=== PATIENT | female | born 1940 | race Caucasian/White ===

== ENCOUNTER → 2019-12-31 | Outpatient (CLI) | payer MEDICARE, BC ==
--- NOTE | 2019-12-31 17:25 | BD ---
EXAMINATION TYPE: Axial Bone Density DATE OF EXAM: 12/31/2019 COMPARISON: 07/05/2012 CLINICAL HISTORY: 79-year-old female postmenopausal screening Height: 65.5 IN Weight: 142 LBS FRAX RISK QUESTIONS: Family History (Parent hip fracture): YES MOTHER RISK FACTORS HISTORY OF: Active: YES Diet low in dairy products/other sources of calcium: YES Postmenopausal woman: AGE 52 MEDICATIONS: Thyroid Medications: YES Which medication: Levothyroxine How Lon+ YEARS Additional Medications: LEVOTHYROXINE, ATENOLOL, KIDNEY AND HEART MEDS, B COMPLEX, MAGNESIUM, BIOTIN EXAM MEASUREMENTS: Bone mineral densitometry was performed using the [employer] System. Bone mineral density as measured about the Lumbar spine is: ----- L1-L4(G/cm2): 0.935 T Score Values are as follows: ----- L2: -2.1 ----- L3: -1.9 ----- L4: -2.3 ----- L1-L4: -2.0 Bone mineral density has: Increased 2.5% since study of: 07/05/2012 Bone mineral density about the R hip (g/cm2): 0.718 Bone mineral density about the L hip (g/cm2): 0.676 T Score values are as follows: -----R Neck: -2.3 -----L Neck: -2.6 -----R Total: -2.5 -----L Total: -2.8 Bone mineral density has: Decreased -8.9% since study of: 07/05/2012 IMPRESSION: Osteoporosis (T Score less than -2.5). There is increased fracture risk and therapy is usually indicated based on age. Re-Screen 1-2 years. NOTE: T-SCORE=SD OF THE YOUNG ADULT MEAN.
--- NOTE | 2020-01-01 11:25 | MM ---
Reason for exam: screening (asymptomatic). Last mammogram was performed 7 years and 6 months ago. History: Patient is postmenopausal. Family history of breast cancer in sister at age 85. Benign excisional biopsy of both breasts. Took hormonal contraceptives for 11 years. Physical Findings: A clinical breast exam by your physician is recommended on an annual basis and results should be correlated with mammographic findings. MG 3D Screening Mammo W/Cad Bilateral CC and MLO view(s) were taken. Prior study comparison: July 05, 2012, bilateral digital screening mammo w/CAD. The breast tissue is heterogeneously dense. This may lower the sensitivity of mammography. Stable benign calcifications. There is no discrete abnormality. No significant changes when compared with prior studies. ASSESSMENT: Benign, BI-RAD 2 RECOMMENDATION: Routine screening mammogram of both breasts in 1 year.
== END | disposition home or self-care (01) ==
LOC: RADMAMWWP 13:51
PROVIDERS: ATTEND Family Medicine
DX: Z12.31 Encounter for screening mammogram for malignant neoplasm of breast (principal); M81.0 Age-related osteoporosis without current pathological fracture
CPT/HCPCS: 77063; 77067; 77080

== ENCOUNTER 2023-03-04 12:09 | Inpatient (IN) | payer MEDICARE, BC ==
[2023-03-04] MEDS ORDERED: SODIUM CHLORIDE 0.9% 500 ML 500 ML IV STA (12:33)
[2023-03-04] MEDS ORDERED: NITROGLYCERIN SL TABS 0.4 MG TAB SUBLINGUAL STA (12:33)
[2023-03-04] MEDS ORDERED: ASPIRIN 81 MG PO STA (12:33)
[2023-03-04] MEDS ORDERED: NITROGLYCERIN OINT 1 INCH/GM PACKET TOPICAL STA (12:33)
[2023-03-04 12:47] LABS: Basophils % (A) 0 %; Eosinophils # (A) 0.1 k/uL (0-0.7); Eosinophils % (A) 1 %; HCT 42.8 % (34.0-46.0); HGB 13.6 gm/dL (11.4-16.0); Lymphocytes # (A) 2.3 k/uL (1.0-4.8); Lymphocytes % (A) 34 %; MCH 28.9 pg (25.0-35.0); MCHC 31.7 g/dL (31.0-37.0); MCV 91.1 fL (80.0-100.0); Mean Platelet Volume 7.3; Monocytes # (A) 0.6 k/uL (0-1.0); Monocytes % (A) 8 %; Neutrophils # (A) 3.5 k/uL (1.3-7.7); Neutrophils % (A) 53 %; Platelet Count 229 k/uL (150-450); RDW 13.2 % (11.5-15.5); WBC 6.7 k/uL (3.8-10.6)
[2023-03-04 12:59] LABS: Albumin 4.3 g/dL (3.5-5.0); Calcium 9.4 mg/dL (8.4-10.2); Potassium 4.2 mmol/L (3.5-5.1); Total Bilirubin 0.6 mg/dL (0.2-1.3); Total Protein 6.6 g/dL (6.3-8.2)
[2023-03-04 13:08] LABS: INR 0.9 (<1.2); Prothrombin Time 9.8 sec (9.0-12.0)
--- NOTE | 2023-03-04 13:10 | XR ---
EXAMINATION TYPE: XR chest 2V DATE OF EXAM: 03/04/2023 COMPARISON: NONE HISTORY: Chest pain TECHNIQUE: Frontal and lateral views of the chest are obtained. FINDINGS: There is no focal air space opacity, pleural effusion, or pneumothorax seen. The cardiac silhouette size is within normal limits. The osseous structures are intact. IMPRESSION: No acute cardiopulmonary process.
--- NOTE | 2023-03-04 13:40 | ED ---
General Adult HPI - General Chief complaint: Chest Pain Stated complaint: syncope Time Seen by Provider: 03/04/23 12:20 Source: patient, RN notes reviewed, old records reviewed Mode of arrival: ambulatory Limitations: no limitations - History of Present Illness Initial comments: This is an 82-year-old female presents emergency Department with past medical history significant for high blood pressure. Patient states she started having chest pain about 45 minutes prior to arrival she states it made her very short of breath. Patient denies any radiation of the pain. Patient denies any nausea. Patient denies any lightheadedness dizziness or near syncopal episode. Patient denies any swelling to legs or calf tenderness. Patient denies any recent fever chills or cough per patient denies any abdominal pain patient denies nausea vomiting diarrhea. - Related Data Home Medications Medication Instructions Recorded Confirmed Benazepril HCl [Lotensin] 20 mg PO HS 03/04/23 03/04/23 Levothyroxine Sodium [Synthroid] 75 mcg PO DAILY 03/04/23 03/04/23 atenoloL [Tenormin] 25 mg PO HS 03/04/23 03/04/23 Allergies Allergy/AdvReac Type Severity Reaction Status Date / Time Penicillins Allergy Rash/Hives Verified 03/04/23 14:04 Review of Systems ROS Statement: Those systems with pertinent positive or pertinent negative responses have been documented in the HPI. ROS Other: All systems not noted in ROS Statement are negative. Past Medical History Past Medical History: Hypertension, Osteoarthritis (OA), Thyroid Disorder Additional Past Medical History / Comment(s): TORN CARTILEDGE ON LEFT KNEE History of Any Multi-Drug Resistant Organisms: None Reported Past Surgical History: Breast Surgery, Cholecystectomy, Tubal Ligation Additional Past Surgical History / Comment(s): BREAST BIOPSY X2 NEG. Past Anesthesia/Blood Transfusion Reactions: Postoperative Nausea & Vomiting (PONV) Past Psychological History: No Psychological Hx Reported Smoking Status: Never smoker Past Alcohol Use History: None Reported Past Drug Use History: None Reported General Exam - General Exam Comments Initial Comments: GENERAL: Patient is well-developed and well-nourished. Patient is nontoxic and well- hydrated and is in mild distress. ENT: Neck is soft and supple. No significant lymphadenopathy is noted. Oropharynx is clear. Moist mucous membranes. Neck has full range of motion without eliciting any pain. EYES: The sclera were anicteric and conjunctiva were pink and moist. Extraocular movements were intact and pupils were equal round and reactive to light. Eyelids were unremarkable. PULMONARY: Unlabored respirations. Good breath sounds bilaterally. No audible rales rhonchi or wheezing was noted. CARDIOVASCULAR: There is a regular rate and rhythm without any murmurs gallops or rubs. ABDOMEN: Soft and nontender with normal bowel sounds. SKIN: Skin is clear with no lesions or rashes and otherwise unremarkable. NEUROLOGIC: Patient is alert and oriented x3. Cranial nerves II through XII are grossly intact. Motor and sensory are also intact. Normal speech, volume and content. Symmetrical smile. MUSCULOSKELETAL: Normal extremities with adequate strength and full range of motion. No lower extremity swelling or edema. No calf tenderness. LYMPHATICS: No significant lymphadenopathy is noted PSYCHIATRIC: Normal psychiatric evaluation. Limitations: no limitations Course Vital Signs 03/04/23 12:16 Temperature 98 F Pulse Rate 82 Respiratory 18 Rate Blood Pressure 176/80 O2 Sat by Pulse 99 Oximetry Medical Decision Making - Medical Decision Making EKG was interpreted by myself. EKG shows a sinus rhythm at 93 bpm MO interval 150 QRS is 98 QT interval 370 QTC is 421. Patient's EKG shows no ST segment el evation or depression. Was pt. sent in by a medical professional or institution (, PA, SENIOR MANUFACTURING ENGINEER, urgent care, hospital, or fpc...) When possible be specific @ -No Did you speak to anyone other than the patient for history (EMS, parent, family, police, friend...)? What history was obtained from this source @ -No Did you review nursing and triage notes (agree or disagree)? Why? @ -I reviewed and agree with nursing and triage notes Were old charts reviewed (outside hosp., previous admission, EMS record, old EKG, old radiological studies, urgent care reports/EKG's, fpc records)? Report findings @ -I reviewed prior charts from this patient prior laboratory work on this patient Differential Diagnosis (chest pain, altered mental status, abdominal pain women, abdominal pain men, vaginal bleeding, weakness, fever, dyspnea, syncope, headache, dizziness, GI bleed, back pain, seizure, CVA, palpatations, mental health, musculoskeletal)? @ -Differential Chest Pain: Stable Angina, Unstable Angina, STEMI, NSTEMI Aortic Dissection, Pneumothorax, Musculoskeletal, Esophageal Spasm GERD, Cholecystitis, Pancreatitis, Zoster, this is not meant to be an all-inclusive list. EKG interpreted by me (3pts min.). @ -As above X-rays interpreted by me (1pt min.). @ -Chest x-ray was interpreted by myself. Chest x-ray shows no acute abnormality CT interpreted by me (1pt min.). @ -I interpreted the CT of the patient's chest is on no PE No aortic dissection. U/S interpreted by me (1pt. min.). @ -None done What testing was considered but not performed or refused? (CT, X-rays, U/S, labs)? Why? @ -None What meds were considered but not given or refused? Why? @ -None Did you discuss the management of the patient with other professionals (professionals i.e. , PA, SENIOR MANUFACTURING ENGINEER, lab, RT, psych nurse, social insurance analyst, ornamental metal worker helper, teacher, senior credit officer, human services case manager)? Give summary @ -[facility] the patient I wrote admitting orders Was smoking cessation discussed for >3mins.? @ -No Was critical care preformed (if so, how long)? @ -No Were there social determinants of health that impacted care today? How? (Homelessness, low income, unemployed, alcoholism, drug addiction, transportation, low edu. Level, literacy, decrease access to med. care, fdc, rehab)? @ -No Was there de-escalation of care discussed even if they declined (Discuss DNR or withdrawal of care, Hospice)? DNR status @ -No What co-morbidities impacted this encounter? (DM, HTN, Smoking, COPD, CAD, Cancer, CVA, ARF, Chemo, Hep., AIDS, mental health diagnosis, sleep apnea, morbid obesity)? @ -None Was patient admitted / discharged? Hospital course, mention meds given and route, prescriptions, significant lab abnormalities, going to OR and other pertinent info. @ -Patient's chest pain was relieved with nitroglycerin. I spoke with Mr. Mr. de paz he agreed to admit the patient I wrote admitting orders I consulted cardiology CAT scan was negative for PE or aortic dissection Undiagnosed new problem with uncertain prognosis? @ -No Drug Therapy requiring intensive monitoring for toxicity (Heparin, Nitro, Insulin, Cardizem)? @ -No Were any procedures done? @ -No Diagnosis/symptom? @ -Chest pain Acute, or Chronic, or Acute on Chronic? @ -Acute Uncomplicated (without systemic symptoms) or Complicated (systemic symptoms)? @ -Complicating Side effects of treatment? @ -No Exacerbation, Progression, or Severe Exacerbation? @ -No Poses a threat to life or bodily function? How? (Chest pain, [place], [place], pneumonia, PE, COPD, DKA, ARF, appy, cholecystitis, CVA, Diverticulitis, Homicidal, Suicidal, threat to staff... and all critical care pts) @ -Yes patient could go on to have a heart attack and this could lead to end organ dysfunction - Lab Data Result diagrams: 03/04/23 12:38 03/04/23 12:38 Lab Results 03/04/23 03/04/23 03/04/23 Range/Units 12:38 12:38 12:38 WBC 6.7 (3.8-10.6) k/uL RBC 4.70 (3.80-5.40) m/uL Hgb 13.6 (11.4-16.0) gm/dL Hct 42.8 (34.0-46.0) % MCV 91.1 (80.0-100.0) fL MCH 28.9 (25.0-35.0) pg MCHC 31.7 (31.0-37.0) g/dL RDW 13.2 (11.5-15.5) % Plt Count 229 (150-450) k/uL MPV 7.3 Neutrophils % 53 % Lymphocytes % 34 % Monocytes % 8 % Eosinophils % 1 % Basophils % 0 % Neutrophils # 3.5 (1.3-7.7) k/uL Lymphocytes # 2.3 (1.0-4.8) k/uL Monocytes # 0.6 (0-1.0) k/uL Eosinophils # 0.1 (0-0.7) k/uL Basophils # 0.0 (0-0.2) k/uL PT 9.8 (9.0-12.0) sec INR 0.9 (<1.2) APTT 24.0 (22.0-30.0) sec D-Dimer 1.30 H (<0.60) mg/L FEU Sodium 138 (137-145) mmol/L Potassium 4.2 (3.5-5.1) mmol/L Chloride 107 (98-107) mmol/L Carbon Dioxide 25 (22-30) mmol/L Anion Gap 6 mmol/L BUN 19 H (7-17) mg/dL Creatinine 0.96 (0.52-1.04) mg/dL Est GFR (CKD-EPI)AfAm 64 (>60 ml/min/1.73 sqM) Est GFR (CKD-EPI)NonAf 56 (>60 ml/min/1.73 sqM) Glucose 94 (74-99) mg/dL Calcium 9.4 (8.4-10.2) mg/dL Magnesium 2.0 (1.6-2.3) mg/dL Total Bilirubin 0.6 (0.2-1.3) mg/dL AST 26 (14-36) U/L ALT 23 (4-34) U/L Alkaline Phosphatase 72 (38-126) U/L Troponin I (0.000-0.034) ng/mL Total Protein 6.6 (6.3-8.2) g/dL Albumin 4.3 (3.5-5.0) g/dL 03/04/23 Range/Units 12:38 WBC (3.8-10.6) k/uL RBC (3.80-5.40) m/uL Hgb (11.4-16.0) gm/dL Hct (34.0-46.0) % MCV (80.0-100.0) fL MCH (25.0-35.0) pg MCHC (31.0-37.0) g/dL RDW (11.5-15.5) % Plt Count (150-450) k/uL MPV Neutrophils % % Lymphocytes % % Monocytes % % Eosinophils % % Basophils % % Neutrophils # (1.3-7.7) k/uL Lymphocytes # (1.0-4.8) k/uL Monocytes # (0-1.0) k/uL Eosinophils # (0-0.7) k/uL Basophils # (0-0.2) k/uL PT (9.0-12.0) sec INR (<1.2) APTT (22.0-30.0) sec D-Dimer (<0.60) mg/L FEU Sodium (137-145) mmol/L Potassium (3.5-5.1) mmol/L Chloride (98-107) mmol/L Carbon Dioxide (22-30) mmol/L Anion Gap mmol/L BUN (7-17) mg/dL Creatinine (0.52-1.04) mg/dL Est GFR (CKD-EPI)AfAm (>60 ml/min/1.73 sqM) Est GFR (CKD-EPI)NonAf (>60 ml/min/1.73 sqM) Glucose (74-99) mg/dL Calcium (8.4-10.2) mg/dL Magnesium (1.6-2.3) mg/dL Total Bilirubin (0.2-1.3) mg/dL AST (14-36) U/L ALT (4-34) U/L Alkaline Phosphatase (38-126) U/L Troponin I <0.012 (0.000-0.034) ng/mL Total Protein (6.3-8.2) g/dL Albumin (3.5-5.0) g/dL Disposition Clinical Impression: Chest pain Disposition: ADMITTED IP TO THIS HOSP Referrals: Devan Lopez MD [Primary Care Provider] - 1-2 days Time of Disposition: 14:34
--- NOTE | 2023-03-04 14:09 | CT ---
EXAMINATION TYPE: CT chest angio for PE DATE OF EXAM: 03/04/2023 COMPARISON: none HISTORY: Chest pain. CT DLP: 220.8 mGycm CONTRAST: CT chest with contrast and 3D reconstruction with MIP imaging is performed with IV Contrast, patient injected with 68ml mL of Isovue 370. Contrast-enhanced CT of the chest was performed through the course of the pulmonary arteries with alma g and mediastinal window settings submitted. 3D reconstruction with MIP imaging was also performed. PULMONARY ARTERIES: The pulmonary arteries and their major tributaries are patent. I do not see cedric dence for sizable filling defect to suggest pulmonary embolic process. LUNGS: The lungs are clear and free of infiltrate. No evidence for atelectasis. No pulmonary nodule or mass is detected. No pleural effusion. MEDIASTINUM: Thoracic aorta is of normal caliber,however, evaluation is limited given timing of the contrast bolus. If there is concern for thoracic aortic pathology consider ELENA. Correlate clinicall y . The heart is not enlarged. No evidence for mediastinal mass. No mediastinal lymph nodes greater than 1cm. HILAR STRUCTURES: No evidence for mass. No hilar lymph nodes greater than 1 cm. UPPER ABDOMEN: No significant abnormality is seen. IMPRESSION: 1. No evidence for Pulmonary embolism at this time.
[2023-03-04] MEDS ORDERED: NITROGLYCERIN SL TABS 0.4 MG TAB SUBLINGUAL PRN (14:34)
[2023-03-04] MEDS: atenoloL 25 MG TAB PO SCH (20:17)
[2023-03-04] MEDS: PANTOPRAZOLE 40 MG/10 ML VIAL IVP SCH (20:17)
[2023-03-04] MEDS: NITROGLYCERIN OINT 1 INCH/GM PACKET TOPICAL SCH (20:17)
[2023-03-04] MEDS ORDERED: lisinopriL 20 MG TAB PO SCH (21:00)
[2023-03-05] MEDS: NITROGLYCERIN OINT 1 INCH/GM PACKET TOPICAL SCH ×4 (01:26→17:43)
--- NOTE | 2023-03-05 02:17 | HP ---
HISTORY AND PHYSICAL CHIEF COMPLAINT: Chest pain. HISTORY OF PRESENT ILLNESS: This is an 82-year-old woman with a past medical history of hypertension, DJD, GERD, was complaining of chest pain which was felt in the center part of the chest which was constricting type of pain without any radiation. The pain lasted about 45 minutes and the family noted that the patient had some blanched appearance also. The patient did have previous GERD symptoms, but this is somewhat different from the previous symptoms according to her. There is no history of any fever, rigors, or chills. Initial labs are normal. D-dimer was elevated but CT did not show any pulmonary embolism. PAST MEDICAL HISTORY: Reviewed, include hypertension, DJD. The rest of the history and rest of the chart is also reviewed. HOME MEDICATIONS: Reviewed include Tenormin. Doses and rest of medication noted. ALLERGIES: Penicillin. FAMILY HISTORY: No history of heart disease or strokes in the family. SOCIAL HISTORY: No history of smoking or alcohol intake. REVIEW OF SYSTEMS: A 14-point review of systems is negative except as mentioned earlier. PHYSICAL EXAMINATION: VITAL SIGNS: Pulse 82, blood pressure n respirations 18. HEENT: Conjunctivae normal. NECK: No jugular venous distention. CARDIOVASCULAR: S1, S2. RESPIRATION: Breath sounds diminished at the bases. No rhonchi. No crackles. ABDOMEN: Soft, nontender. LEGS: No edema. NERVOUS SYSTEM: No focal deficits. SKIN: No ulcer, rash, bleeding. JOINTS: No active deforming arthropathy. LABORATORY DATA: CBC within normal limits. D-dimer . The rest of the labs noted. EKG shows nonspecific ST-T changes. ASSESSMENT: 1. Chest pain, possible unstable angina. 2. History of hypertension. 3. History of gastroesophageal reflux disease. 4. Multiple medical issues. RECOMMENDATIONS: This is an 82-year-old woman, who presented with multiple complex medical issues. At this time, I recommend to continue current medications rule out myocardial infarction. Follow closely with Cardiology. Resume the home medications. The patient will definitely need a stress test and further evaluation. Further recommendations to follow. Discussed with the patient and family. MMODL / IJN: [id number] / MTDD
[2023-03-05] MEDS: LEVOTHYROXINE 75 MCG TAB PO SCH (05:54)
[2023-03-05 08:03] LABS: Basophils % (A) 1 %; Eosinophils # (A) 0.1 k/uL (0-0.7); Eosinophils % (A) 1 %; HCT 40.5 % (34.0-46.0); Lymphocytes # (A) 1.2 k/uL (1.0-4.8); Lymphocytes % (A) 25 %; MCH 29.7 pg (25.0-35.0); MCHC 32.1 g/dL (31.0-37.0); MCV 92.5 fL (80.0-100.0); Mean Platelet Volume 7.3; Monocytes # (A) 0.4 k/uL (0-1.0); Monocytes % (A) 9 %; Neutrophils # (A) 2.9 k/uL (1.3-7.7); Neutrophils % (A) 61 %; Platelet Count 217 k/uL (150-450); RBC 4.38 m/uL (3.80-5.40); RDW 13.3 % (11.5-15.5); WBC 4.8 k/uL (3.8-10.6)
[2023-03-05 08:16] LABS: African American GFR (CKD) 72 (>60 ml/min/1.73 sqM); Anion Gap 2 mmol/L; Blood Urea Nitrogen 14 mg/dL (7-17); Calcium 9.2 mg/dL (8.4-10.2); Carbon Dioxide 30 mmol/L (22-30); Chloride 108 mmol/L (98-107); Glucose 89 mg/dL (74-99); Non-African American GFR(CKD) 63 (>60 ml/min/1.73 sqM); Potassium 4.6 mmol/L (3.5-5.1); Sodium 140 mmol/L (137-145)
[2023-03-05] MEDS ORDERED: ASPIRIN 325 MG TAB PO SCH (09:00)
[2023-03-05] MEDS: PANTOPRAZOLE 40 MG TABLET PO SCH (10:10)
[2023-03-05] MEDS: PANTOPRAZOLE 40 MG/10 ML VIAL IVP SCH (10:51)
[2023-03-05] MEDS ORDERED: lisinopriL 10 MG TAB PO STA (12:32)
--- NOTE | 2023-03-05 12:36 | P.CRDCN ---
History of Present Illness Consult date: 03/05/23 History of present illness: This very pleasant 82-year-old female with a known history of hypertension and hypothyroidism was brought into the ER with complaints of chest pain and dizziness. We have been consulted to see her for chest pain. 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 Patient was walking in the grocery store with her daughter she dizziness and chest pressure. Lasted about 45 minutes. Her EKG showed sinus rhythm. Troponins were negative 3. D-dimer was elevated. CT of the chest was negative for pulmonary embolism. Chest x-ray was negative for acute cardiopulmonary process. Blood pressure was elevated upon admission. This morning remains elevated at 168/77, heart rates in the 50s or 60s. Patient does take benazepril 20 mg at bedtime at home. When asked if her blood pressure been running high at home. She states she checked it about a week ago. It was elevated in the morning similar to today's reading. But she had forgot to take her blood pressure pills the night before and thought that was why. But has not checked it since. Patient is seen today resting comfortably on the side of the bed injuring her breakfast. Daughter is present in the room. She denies any further episodes of chest pain,/pressure, or increased shortness of breath. Will increase lisinopril to 30 mg daily. Will obtain a 2-D echocardiogram and jeyson stress test tomorrow Review of Systems REVIEW OF SYSTEMS At the time of my exam: CONSTITUTIONAL: Denies fever or chills. EYES: Negative for vision changes ENT: Negative for hearing loss CARDIOVASCULAR: Denies chest pain, shortness of breath, diaphoresis, orthopnea, PND or palpitations. VASCULAR: Denies edema RESPIRATORY: Denies cough. GASTROINTESTINAL: Denies abdominal pain, diarrhea, constipation, nausea or vomiting. MUSCULOSKELETAL: Denies myalgias. NEUROLOGIC: Denies numbness, tingling, headache or weakness. ENDOCRINE: Denies fatigue, weight change, polydipsia or polyurina. GENITOURINARY: Denies burning, hematuria or urgency with micturation. HEMATOLOGIC: Denies history of anemia or bleeding. DERMATOLOGY: Denies rash or skin sores PSYCH: Negative for depression or hallucinations. Past Medical History Past Medical History: Hypertension, Osteoarthritis (OA), Thyroid Disorder Additional Past Medical History / Comment(s): TORN CARTILEDGE ON LEFT KNEE History of Any Multi-Drug Resistant Organisms: None Reported Past Surgical History: Breast Surgery, Cholecystectomy, Tubal Ligation Additional Past Surgical History / Comment(s): BREAST BIOPSY X2 NEG. Past Anesthesia/Blood Transfusion Reactions: Postoperative Nausea & Vomiting (PONV) Past Psychological History: No Psychological Hx Reported Smoking Status: Never smoker Past Alcohol Use History: None Reported Past Drug Use History: None Reported Medications and Allergies Home Medications Medication Instructions Recorded Confirmed Type Benazepril HCl [Lotensin] 20 mg PO HS 03/04/23 03/04/23 History Levothyroxine Sodium [Synthroid] 75 mcg PO DAILY 03/04/23 03/04/23 History atenoloL [Tenormin] 25 mg PO HS 03/04/23 03/04/23 History Aspirin 81 mg PO DAILY #30 tab 03/05/23 Rx Nitroglycerin Sl Tabs [Nitrostat] 0.4 mg SUBLINGUAL Q5M PRN #20 tab 03/05/23 Rx Pantoprazole [Protonix] 40 mg PO AC-BRKFST #30 tab 03/05/23 Rx Allergies Allergy/AdvReac Type Severity Reaction Status Date / Time Penicillins Allergy Rash/Hives Verified 03/04/23 14:04 Physical Exam Vitals: Vital Signs Temp Pulse Pulse Resp BP BP Pulse Ox 03/05/23 08:00 64 18 03/05/23 07:59 97 03/05/23 07:00 97.6 F 64 18 168/77 97 03/05/23 03:34 98.1 F 59 L 18 137/68 97 03/05/23 01:22 82 18 03/04/23 20:24 82 18 03/04/23 19:51 97.8 F 70 16 170/72 96 03/04/23 17:03 97.9 F 82 18 166/69 98 03/04/23 15:55 80 18 156/75 97 Intake and Output 03/04/23 03/05/23 03/05/23 22:59 06:59 14:59 Other: # Voids 2 2 Weight 67.132 kg At the time of my exam: General: The patient is awake and alert, in no distress, and does not appear acutely ill. Skin: Skin is warm and dry and no rashes or lesions are noted. Eye: Pupils are equal, round and reactive to light, extra-ocular movements are intact; there is normal conjunctiva bilaterally. Ears, nose, mouth and throat: There are moist mucous membranes and no oral lesions. Neck: The neck is supple, there is no tenderness or JVD. Cardiovascular: There is irregular regular rate and rhythm. No murmur, rub or gallop is appreciated. Respiratory: Lungs are clear to auscultation, respirations are non-labored, breath sounds are equal. Gastrointestinal: Soft, non-distended, non-tender abdomen without masses or organomegaly noted. There is no rebound or guarding present. Bowel sounds are unremarkable. Back: There is no tenderness to palpation in the midline. There is no obvious deformity. Musculoskeletal: Normal ROM, no tenderness, There is no pedal edema. There is no calf tenderness or swelling. Extremities: Mild bilateral pitting edema Vascular: Femoral pulse is normal. Posterior tibial pulses are normal .Dorsalis pedis is palpable. Neurological: CN II-XII intact. There are no obvious motor or sensory deficits. Speech is normal. Psychiatric: Cooperative, appropriate mood & affect, normal judgment Results 03/05/23 07:27 03/05/23 07:27 Cardiac Enzymes 03/04/23 03/04/23 03/04/23 Range/Units 12:38 12:38 14:49 AST 26 (14-36) U/L Troponin I <0.012 <0.012 (0.000-0.034) ng/mL 03/04/23 Range/Units 18:25 AST (14-36) U/L Troponin I <0.012 (0.000-0.034) ng/mL Coagulation 03/04/23 Range/Units 12:38 PT 9.8 (9.0-12.0) sec APTT 24.0 (22.0-30.0) sec CBC 03/04/23 03/05/23 Range/Units 12:38 07:27 WBC 6.7 4.8 (3.8-10.6) k/uL RBC 4.70 4.38 (3.80-5.40) m/uL Hgb 13.6 13.0 (11.4-16.0) gm/dL Hct 42.8 40.5 (34.0-46.0) % Plt Count 229 217 (150-450) k/uL Comprehensive Metabolic Panel 03/04/23 03/05/23 Range/Units 12:38 07:27 Sodium 138 140 (137-145) mmol/L Potassium 4.2 4.6 (3.5-5.1) mmol/L Chloride 107 108 H (98-107) mmol/L Carbon Dioxide 25 30 (22-30) mmol/L BUN 19 H 14 (7-17) mg/dL Creatinine 0.96 0.87 (0.52-1.04) mg/dL Glucose 94 89 (74-99) mg/dL Calcium 9.4 9.2 (8.4-10.2) mg/dL AST 26 (14-36) U/L ALT 23 (4-34) U/L Alkaline Phosphatase 72 (38-126) U/L Total Protein 6.6 (6.3-8.2) g/dL Albumin 4.3 (3.5-5.0) g/dL Current Medications Generic Name Dose Route Start Last Admin Trade Name Freq PRN Reason Stop Dose Admin Aspirin 325 mg 03/05/23 09:00 03/05/23 10:10 Aspirin 325 Mg Tab PO 325 mg DAILY [facility] Administration Atenolol 25 mg 03/04/23 21:00 03/04/23 20:17 Atenolol 25 Mg Tab PO 25 mg HS [facility] Administration Levothyroxine Sodium 75 mcg 03/05/23 06:30 03/05/23 05:54 Levothyroxine 75 Mcg Tab PO 75 mcg DAILY@0630 [facility] Administration Lisinopril 20 mg 03/04/23 21:00 03/04/23 20:17 Lisinopril 20 Mg Tab PO 20 mg HS [facility] Administration Nitroglycerin 0.4 mg 03/04/23 14:34 Nitroglycerin Sl Tabs 0.4 Mg Tab SUBLINGUAL Q5M PRN Chest Pain Nitroglycerin 1 inch 03/04/23 18:00 03/05/23 05:53 Nitroglycerin Oint 1 Inch/Gm Packet TOPICAL 1 inch Q6HR [facility] Administration Pantoprazole Sodium 40 mg 03/05/23 09:15 03/05/23 10:10 Pantoprazole 40 Mg Tablet PO 40 mg AC-BRKFST [facility] Administration Intake and Output 03/04/23 03/05/23 03/05/23 22:59 06:59 14:59 Other: # Voids 2 2 Weight 67.132 kg 03/05/23 07:27 03/05/23 07:27 Assessment and Plan Assessment: Chest pain rule out ACS History of hypertension Plan: Will obtain a 2-D echocardiogram Will obtain a Lexiscan stress test Will increase lisinopril to 30 mg daily Continue telemetry monitoring Further recommendations based on clinical course The above impression and plan of care have been discussed and directed by the signing physician. Shelley Schmidt, nurse practitioner, acting as scribe for signing physician.
[2023-03-05 14:58] LABS: Chol/HDL Ratio 3.41 Ratio; LDL Cholesterol,Calculated 142.2 mg/dL (0.0-131.0); VLDL Calculation 17.58 mg/dL (5.00-40.00)
[2023-03-05] MEDS: atenoloL 25 MG TAB PO SCH (20:19)
[2023-03-05] MEDS: lisinopriL 10 MG TAB PO SCH (20:19)
--- NOTE | 2023-03-05 23:54 | PN ---
PROGRESS NOTE DATE OF SERVICE: 03/05/2023 SUBJECTIVE: This is an 82-year-old woman, who was admitted with chest pain, is being closely monitored. Cardiology is recommending 2D echo and stress test. No chest pain. No palpitations. CT is negative. OBJECTIVE: VITAL SIGNS: Pulse 64, blood pressure 168/77, respirations 18. CHEST: Clear to auscultation. CARDIOVASCULAR: S1, S2 muffled. ABDOMEN: Soft. LABORATORY DATA: Reviewed. ASSESSMENT: 1. Chest pain, possible unstable angina. 2. Gastroesophageal reflux disease. 3. History of hypertension. 4. Multiple medical issues. RECOMMENDATIONS AND DISCUSSION: Recommend to continue current medications, symptomatic treatment. Otherwise, n.p.o. past midnight. No caffeinated beverages and stress test per Cardiology. Prognosis guarded. Further recommendations to follow. MMODL / IJN: [id number] /
[2023-03-06] MEDS: NITROGLYCERIN OINT 1 INCH/GM PACKET TOPICAL SCH ×2 (02:20→05:03)
[2023-03-06] MEDS: LEVOTHYROXINE 75 MCG TAB PO SCH (05:54)
[2023-03-06] MEDS: PANTOPRAZOLE 40 MG TABLET PO SCH (05:54)
[2023-03-06] MEDS ORDERED: REGADENOSON 0.4 MG/5 ML SYRINGE IV PRN (06:00)
[2023-03-06] MEDS ORDERED: AMINOPHYLLINE 500 MG/20 ML VIAL IV PRN (06:00)
[2023-03-06] MEDS ORDERED: CAFFEINE CITRATE 60 MG/3 ML VIAL IV PRN (06:00)
[2023-03-06] MEDS: lisinopriL 10 MG TAB PO SCH (08:05)
--- NOTE | 2023-03-06 09:29 | P.PN ---
Subjective Progress Note Date: 03/06/23 HISTORY OF PRESENT ILLNESS: This very pleasant 82-year-old female with a known history of hypertension and hypothyroidism was brought into the ER with complaints of chest pain and d izziness. We have been consulted to see her for chest pain. 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 Patient was walking in the grocery store with her daughter she dizziness and chest pressure. Lasted about 45 minutes. Her EKG showed sinus rhythm. Troponins were negative 3. D-dimer was elevated. CT of the chest was negative for pulmonary embolism. Chest x-ray was negative for acute cardiopulmonary process. Blood pressure was elevated upon admission. This morning remains elevated at 168/77, heart rates in the 50s or 60s. Patient does take benazepril 20 mg at bedtime at home. When asked if her blood pressure been running high at home. She states she checked it about a week ago. It was elevated in the morning similar to today's reading. But she had forgot to take her blood pressure pills the night before and thought that was why. But has not checked it since. Patient is seen today resting comfortably on the side of the bed injuring her breakfast. Daughter is present in the room. She denies any further episodes of chest pain,/pressure, or increased shortness of breath. Will increase lisinopril to 30 mg daily. Will obtain a 2-D echocardiogram and jeyson stress t est tomorrow 03/06/2023 Patient examined this morning. She is sitting up in the chair. She denies chest pain or pressure. She denies shortness of breath. Vital signs are stabl e. PHYSICAL EXAM: VITAL SIGNS: Reviewed. GENERAL: Well-developed in no acute distress. NECK: Supple. No JVD or thyromegaly LUNGS: Respirations even and unlabored. Lungs essentially clear to auscultation bilaterally. HEART: Regular rate and rhythm. S1 and S2 heard. EXTREMITIES: Normal range of motion. No clubbing or cyanosis. Peripheral pulses intact. No lower extremity edema ASSESSMENT: Chest pain Dizziness Hypertension Hypothyroidism PLAN: An acute coronary event has been ruled out Continue current cardiac medications 2-D echo pending Patient will undergo a Lexiscan stress test today If negative, she may be discharged home from a cardiac standpoint and follow up outpatient with Dr. Oneill Nurse practitioner note has been reviewed by physician. Signing provider agrees with the documented findings, assessment, and plan of care. Objective - Vital Signs Vital signs: Vital Signs Temp 97.7 F 03/06/23 07:00 Pulse 54 L 03/06/23 07:00 Resp 16 03/06/23 07:00 BP 136/67 03/06/23 07:00 Pulse Ox 98 03/06/23 07:00 FiO2 Intake & Output 03/05/23 03/06/23 03/06/23 18:59 06:59 18:59 Other: Voiding Method Toilet # Voids 3 2 - Labs CBC & Chem 7: 03/05/23 07:27 03/05/23 07:27 Labs: Abnormal Lab Results - Last 24 Hours (Table) 03/05/23 Range/Units 07:27 Cholesterol 226.00 H (0.00-200.00) mg/dL LDL Cholesterol, Calc 142.2 H (0.0-131.0) mg/dL HDL Cholesterol 66.20 H (40.00-60.00) mg/dL
[2023-03-06] MEDS: ASPIRIN 81 MG PO SCH (10:05)
--- NOTE | 2023-03-06 14:10 | P.STRESS ---
- Stress Test Note Stress Test Results/Findings: Exam Performed: Exam Date: Reason for Exam: Height: 5 ft 6 in Weight: 67.132 kg Protocol: Stage: Duration of Exercise: Resting Heart Rate: Resting Blood Pressure: Maximum Achieved Heart Rate: Maximum Achieved Blood Pressure: 85% PMHR: 100% PMHR: METS: Technologist Comment: Stress Test Results/Findings: Lexiscan cardio lyte stress test Baseline heart rate 55 beats a minute, Baseline blood pressure 141/70 mmHg Baseline 12 EKG shows sinus rhythm with normal ST segments Sinus tachycardia with Lexiscan infusion, transient Normal blood pressure response No ischemia noted on EKG Occasional PVCs Nuclear portion will be reported separately
--- NOTE | 2023-03-06 14:25 | CA ---
Transthoracic Echo Report Name: Di Murillo Age: 82 Gender: F : 1940 Exam Date: 03/06/2023 08:24 Exam Location: [facility] Ht (in): 66 Wt (lb): 148 Ordering Physician: Shelley Schmidt Attending/Referring Phys: Cfd Engineer Bev Lopez RDCS Procedure CPT: Indications: CP Cardiac Hx: Technical Quality: Good Contrast 1: Total Dose (mL): Contrast 2: Total Dose (mL): MEASUREMENTS (Male / Female) Normal Values 2D ECHO LV Diastolic Diameter PLAX 4.1 cm 4.2 - 5.9 / 3.9 - 5.3 cm LV Systolic Diameter PLAX 2.7 cm IVS Diastolic Thickness 0.9 cm 0.6 - 1.0 / 0.6 - 0.9 cm LVPW Diastolic Thickness 0.8 cm 0.6 - 1.0 / 0.6 - 0.9 cm LV Relative Wall Thickness 0.4 RV Internal Dim ED PLAX 3.0 cm LA Systolic Diameter LX 3.2 cm 3.0 - 4.0 / 2.7 - 3.8 cm LV Diastolic Volume MOD 4C 96.5 cm??? LV Systolic Volume MOD 4C 36.0 cm??? LV Ejection Fraction MOD 4C 62.7 % LV Diastolic Length 4C 7.4 cm LV Systolic Length 4C 5.5 cm LV Diastolic Volume MOD 2C 69.2 cm??? LV Systolic Volume MOD 2C 25.1 cm??? LV Ejection Fraction MOD 2C 63.8 % LV Diastolic Length 2C 7.0 cm LV Systolic Length 2C 5.6 cm LA Volume 53.4 cm??? 18 - 58 / 22 - 52 cm??? M-MODE Aortic Root Diameter MM 3.4 cm MV E Point Septal Separation 1.5 cm AV Cusp Separation MM 2.2 cm DOPPLER AV Peak Velocity 136.9 cm/s AV Peak Gradient 7.5 mmHg AI Peak Velocity 407.1 cm/s AI Peak Gradient 66.3 mmHg AI Pressure Half Time 614.5 ms MV Area PHT 2.0 cm??? Mitral E Point Velocity 66.9 cm/s Mitral A Point Velocity 77.2 cm/s Mitral E to A Ratio 0.9 MV Deceleration Time 386.5 ms MV E' Velocity 5.8 cm/s Mitral E to MV E' Ratio 11.5 TR Peak Velocity 240.8 cm/s TR Peak Gradient 23.2 mmHg Right Ventricular Systolic Press 27.2 mmHg FINDINGS Left Ventricle Left ventricular ejection fraction is estimated at 55-60 %. Left ventricular cavity size normal. Left ventricular wall thickness normal. No obvious regional wall motion abnormalities. Right Ventricle Normal right ventricular size and function. Right ventricular systolic pressure within normal limits. Right Atrium Normal right atrial size. Left Atrium Mildly increased left atrial volume. Mitral Valve Mitral annular calcification. Mild mitral regurgitation. No mitral stenosis. Aortic Valve Trileaflet aortic valve. Aortic valve sclerosis. Mild aortic regurgitation. Tricuspid Valve Structurally normal tricuspid valve. Mild tricuspid regurgitation. Pulmonic Valve Structurally normal pulmonic valve. Trace pulmonic regurgitation. Pericardium Normal pericardium. No pericardial effusion. Aorta Normal size aortic root and proximal ascending aorta. CONCLUSIONS Normal LV systolic function By atrial enlargement No significant valvular abnormalities Previewed by: Dr. Yosi Guidry MD (Electronically Signed) Final Date: 06 March 2023 14:24
--- NOTE | 2023-03-06 14:49 | NM ---
EXAMINATION TYPE: NM stress lexiscan cardiolite DATE OF EXAM: 03/06/2023 COMPARISON: NONE HISTORY: Chest pain with normal EKG and trops TECHNIQUE: After the intravenous administration of 10.5 mCi Tc 99m Sestamibi - Cardiolite resting SP ECT images acquired 75 minutes post injection. The patient received 0.4mg Lexiscan, 25.3 mCi Tc 99m Sestamibi - Stress images obtained [address] injection FINDINGS: Review of stress and rest SPECT images demonstrates small area of reversible ischemia involving the c ardiac apex. Stress-induced ischemia is not excluded. Gated analysis shows normal wall motion with an estimated left ventricular ejection fraction of 59 %. IMPRESSION: small area of reversible ischemia involving the cardiac apex. Stress-induced ischemia is not excluded .
[2023-03-06] MEDS ORDERED: ALPRAZolam 0.5 MG TAB PO PRN (14:53)
[2023-03-06] MEDS ORDERED: NITROGLYCERIN SL TABS 0.4 MG TAB SUBLINGUAL PRN (14:53)
[2023-03-06] MEDS ORDERED: ALPRAZolam 0.25 MG TAB PO PRN (14:53)
--- NOTE | 2023-03-06 17:42 | P.PN ---
Subjective Progress Note Date: 03/06/23 This is a pleasant 82-year-old female who was recently admitted with chest pain and being closely monitored. Patient is being followed by cardiology undergoing stress test today. Patient currently maintained on telemetry monitoring with no reports of worsening chest pain or shortness of breath. Patient is afebrile and currently nothing by mouth for the stress test. Review of systems: Constitutional: No reports of fatigue, fever, or chills Cardiovascular: reports of chest pain , no reports of palpitations Respiratory: No reports of shortness of breath or cough GI: no reports of nausea, no reports of vomiting no diarrhea : No reports of dysuria or retention Neurovascular: no reports of generalized weakness All medications have been reviewed PHYSICAL EXAMINATION: GENERAL: The patient is alert and oriented x4, Well developed, well nourished. HEENT: Pupils are round and equally reacting to light. EOMI. no scleral icterus. No conjunctival pallor. Normocephalic, atraumatic. No pharyngeal erythema. No thyromegaly. CARDIOVASCULAR: S1 and S2 muffled PULMONARY: diminished breath sounds bilaterally with no wheezing or rhonchi noted. ABDOMEN: soft. Nontender on exam. non-distended, normoactive bowel sounds. No palpable organomegaly. MUSCULOSKELETAL: No joint swelling or deformity. EXTREMITIES: No cyanosis, clubbing, or pedal edema. NEUROLOGICAL: Gross neurological examination did not reveal any focal deficits. SKIN: No rashes. Assessment: Chest pain, possible unstable angina, abnormal stress on 03/06/2023 Gastroesophageal reflux disease History of hypertension History of hypothyroidism GI prophylaxis DVT prophylaxis Full code Plan: Recommend to continue with current medications and management with cardiology following. Patient underwent stress test today and was found to have a small area of reversible ischemia involving the cardiac apex with stress-induced ischemia not excluded and cardiology is recommending cardiac catheterization in the a.m. Patient is agreeable with family at the bedside and questions and concerns were answered. Recommend continue with telemetry monitoring and patient will be nothing by mouth at midnight again for cardiac catheterization. Will await cardiology report. Recommend repeat labs in the a.m. The impression and plan of care has been dictated by Ev May, nurse practitioner as directed. Dr. Ricardo MD I have performed a history and examination and MDM of this patient, discussed the same with the dictator, and agree with the dictator's assessment and plan as written ,documented as a scribe. Based on total visit time, I have performed more than 50% of the visit. Any additional findings or plans will be noted. Objective - Vital Signs Vital signs: Vital Signs Temp 97.7 F 03/06/23 07:00 Pulse 54 L 03/06/23 07:00 Resp 16 03/06/23 07:00 BP 136/67 03/06/23 07:00 Pulse Ox 98 03/06/23 07:00 FiO2 Intake & Output 03/05/23 03/06/23 03/06/23 18:59 06:59 18:59 Other: Voiding Method Toilet # Voids 3 2 - Labs CBC & Chem 7: 03/05/23 07:27 03/05/23 07:27 Labs: Abnormal Lab Results - Last 24 Hours (Table) 03/05/23 Range/Units 07:27 Cholesterol 226.00 H (0.00-200.00) mg/dL LDL Cholesterol, Calc 142.2 H (0.0-131.0) mg/dL HDL Cholesterol 66.20 H (40.00-60.00) mg/dL
--- NOTE | 2023-03-06 18:32 | CA ---
Lexiscan Nuclear Stress Test Report Name: Di Murillo Exam Date: 03/06/2023 10:06 Exam Location: [facility] Ht (in): 66 Wt (lb): 148 BSA: 1.76 Ordering Phys: Shelley Dhaliwal NPC Referring Phys: SHELLEY DHALIWAL,, Technologist: JOSE LUIS,, Age: 82 Gender: F : 1940 Procedure CPT: Indications: Reflex order-Stress test ICD-10 Codes: Patient History: Chest Pain Medications: Meds past 24 hrs: Pretest Chest Pain: STRESS TEST Lexiscan Protocol Exercise Duration (min:sec): 02:[address] Depressions (mm): Angina Score: Bailey Score: Resting HR (bpm): 55 Peak HR (bpm): 103 Resting BP (mmHg): 141 / 70 Peak BP (mmHg): 159 / 72 MPHR: 139 Target HR: 118 % MPHR: 74 METS: 1.0 Total Dose: Peak Dose: Atropine: Double Product: 96107 BP Response: Stress Termination: Infusion complete Stress Symptoms: No chest pain or symptoms Stress Summary: ECG ANALYSIS Resting ECG: Stress ECG: CONCLUSIONS No ischemia noted on EKG during Lexiscan infusion Dr. Yosi Guidry MD (Electronically Signed) Final Date: 06 March 2023 18:31
[2023-03-06] MEDS: atenoloL 25 MG TAB PO SCH (20:25)
[2023-03-06] MEDS ORDERED: ATORVASTATIN 20 MG TAB PO SCH (21:00)
[2023-03-06] MEDS: SODIUM CHLORIDE 0.9% 1,000 ML in EMPTY BAG 1 BAG IV SCH (23:06)
[2023-03-07] MEDS ORDERED: ATORVASTATIN 80 MG TAB PO ONE (05:00)
[2023-03-07] MEDS ORDERED: ASPIRIN 325 MG TAB PO ONE (05:00)
[2023-03-07] MEDS: LEVOTHYROXINE 75 MCG TAB PO SCH (05:56)
[2023-03-07] MEDS: PANTOPRAZOLE 40 MG TABLET PO SCH (05:56)
[2023-03-07] MEDS ORDERED: HEPARIN SODIUM,PORCINE 10,000 UNIT in SODIUM CHLORIDE 0.9% 1,000 ML IRRIGATION PRN (07:00)
[2023-03-07] MEDS ORDERED: HEPARIN SODIUM,PORCINE 2,500 UNIT in SODIUM CHLORIDE 0.9% 250 ML IRRIGATION PRN (07:00)
[2023-03-07] MEDS ORDERED: VERAPAMIL 2.5 MG/ML 2 ML AMP ONE (07:16)
[2023-03-07] MEDS ORDERED: fentaNYL (PF) 50 MCG/ML 2 ML AMP ONE (07:33)
[2023-03-07] MEDS ORDERED: fentaNYL (PF) 50 MCG/ML 2 ML AMP IV ONE (07:36)
[2023-03-07] MEDS ORDERED: SODIUM CHLORIDE 0.9% 1,000 ML IV ONE (07:36)
[2023-03-07] MEDS ORDERED: VERAPAMIL SYRINGE (5 MG/10 ML) INTRAARTER ONE (07:36)
[2023-03-07] MEDS ORDERED: MIDAZOLAM 2 MG/2 ML VIAL IV ONE (07:36)
[2023-03-07] MEDS ORDERED: LIDOCAINE 1% INJ 10MG/ML (5 ML VIAL-PF) IV ONE (07:36)
[2023-03-07] MEDS ORDERED: HEPARIN SODIUM 1,000 UN/ML (10ML VL) ONE (07:38)
[2023-03-07] MEDS ORDERED: HEPARIN SODIUM 1,000 UN/ML (10ML VL) IV ONE (07:44)
[2023-03-07] MEDS ORDERED: IOPAMIDOL-370 125ML BTL INJ ONE (07:54)
--- NOTE | 2023-03-07 08:18 | CC ---
CARDIAC CATHETERIZATION REPORT INDICATION: Chest pain with abnormal stress test showing ischemia involving the apex. PROCEDURE NOTE: After obtaining informed consent, left heart catheterization and coronary angiogram were performed via right radial artery using standard Nathalie catheters. The patient tolerated the procedure well without any obvious immediate complications. The patient received moderate conscious sedation. Total sedation time was 19 minutes. Right radial artery access was obtained using Seldinger technique, and catheters and wires were floated into the ascending aorta under fluoroscopic guidance. The patient received verapamil and heparin per protocol. A TR band was used for hemostasis. FINDINGS: 1. HEMODYNAMICS: Left ventricular end-diastolic pressure is 14 mm. There is no significant gradient across the aortic valve. 2. LEFT VENTRICULOGRAM: Left ventriculogram is not performed. 3. ANGIOGRAPHIC DATA: a.Right coronary artery is a small nondominant vessel and is free of stenosis. b. Left main coronary artery is a short vessel. c.LAD and its branches, circumflex coronary artery and its branches are free of significant stenosis. CONCLUSIONS: 1. Normal coronary arteries. 2. Normal left ventricular end-diastolic pressure. PLAN: I reviewed angiographic data with the patient and told her that her chest pain is noncardiac in origin and the stress test is a false-positive stress test. MMODL / IJN: [id number] /
[2023-03-07] MEDS: lisinopriL 10 MG TAB PO SCH (08:44)
[2023-03-07] MEDS: ASPIRIN 81 MG PO SCH (08:44)
[2023-03-07 08:47] LABS: Basophils # (A) 0.06 X 10*3/uL (0.00-0.10); Basophils % (A) 1.1 %; Eosinophils # (A) 0.06 X 10*3/uL (0.04-0.35); Eosinophils % (A) 1.1 %; HCT 37.9 % (37.2-46.3); HGB 11.9 g/dL (12.0-15.0); Immature Grans, Automated 0.4 %; Lymphocytes # (A) 1.71 X 10*3/uL (0.90-5.00); Lymphocytes % (A) 31.4 %; MCH 29.1 pg (27.0-32.0); MCHC 31.4 g/dL (32.0-37.0); MCV 92.7 fL (80.0-97.0); Monocytes # (A) 0.84 X 10*3/uL (0.20-1.00); Monocytes % (A) 15.4 %; NRBC Per 100 WBC 0 /100 WBCS (0.0-0.0); Neutrophils # (A) 2.75 X 10*3/uL (1.80-7.70); Neutrophils % (A) 50.6 %; Platelet Count 190 X 10*3/uL (140-440); RBC 4.09 X 10*6/uL (4.10-5.20); RDW 13.6 % (11.5-14.5); WBC 5.44 X 10*3/uL (4.50-10.00)
[2023-03-07 08:58] LABS: African American GFR (CKD) 69.5 (60.0-200.0); Anion Gap 6.2 mmol/L (10.00-18.00); BUN/Creat Ratio 16.78 Ratio (12.00-20.00); Blood Urea Nitrogen 15.1 mg/dL (9.0-27.0); Calcium 9.1 mg/dL (8.7-10.3); Carbon Dioxide 27.8 mmol/L (20.0-27.5); Magnesium 2.1 mg/dL (1.5-2.4); Potassium 4.5 mmol/L (3.5-5.5)
[2023-03-07] MEDS ORDERED: ACETAMINOPHEN TAB 325 MG TAB PO PRN (10:57)
[2023-03-07 14:45] VITALS: BP 154/80; PULSE 58; RESP 20; TEMP 98.1
[2023-03-07] MEDS: SODIUM CHLORIDE 0.9% 1,000 ML in EMPTY BAG 1 BAG IV SCH (15:48)
== END 2023-03-07 15:34 | disposition home or self-care (01) | DRG 287 ==
LOC: EC 12:09 → 6NMEDSUR 14:35 → OBSVTOIN 03-06 16:19
PROVIDERS: ADMIT Hospitalist; ATTEND Hospitalist
PROC: 4A023N7 Measurement of Cardiac Sampling and Pressure, Left Heart, Percutaneous Approach (ICD-10-PCS; principal; 2023-03-07 07:30)
PROC: B2111ZZ Fluoroscopy of Multiple Coronary Arteries using Low Osmolar Contrast (ICD-10-PCS; principal; 2023-03-07 07:30)
DX: I20.0 Unstable angina (principal); I10 Essential (primary) hypertension; K21.9 Gastro-esophageal reflux disease without esophagitis; M19.90 Unspecified osteoarthritis, unspecified site; E03.9 Hypothyroidism, unspecified; Z79.82 Long term (current) use of aspirin; Z79.890 Hormone replacement therapy; Z79.899 Other long term (current) drug therapy; Z28.21 Immunization not carried out because of patient refusal
CPT/HCPCS: 36415; 71046; 71275; 78452; 80048; 80053; 80061; 83735; 84484; 85025; 85379; 85610; 85730; 93005; 93017; 93306; 93458; 94760; 96360; 96361; 99285

== ENCOUNTER → 2024-06-24 | Outpatient (CLI) | payer MEDICARE, BC ==
[2024-06-24] MEDS: DENOSUMAB 60 MG/ML 1 ML SYRINGE SQ ONE (13:40)
[2024-06-24 13:47] VITALS: BP 159/50; PULSE 74; RESP 16; TEMP 97.7
== END ==
LOC: PROCWHC3 13:37
PROVIDERS: ATTEND Family Medicine
DX: M81.0 Age-related osteoporosis without current pathological fracture (principal)
CPT/HCPCS: 96372; J0897

== ENCOUNTER 2024-09-13 11:05 | Observation (INO) | payer MEDICARE, BC ==
[2024-09-13 13:08] LABS: Basophils % (A) 0 %; Eosinophils % (A) 0 %; HCT 41.7 % (34.0-46.0); HGB 13.3 gm/dL (11.4-16.0); Lymphocytes # (A) 1.1 k/uL (1.0-4.8); Lymphocytes % (A) 18 %; MCH 29.7 pg (25.0-35.0); MCHC 31.9 g/dL (31.0-37.0); Mean Platelet Volume 7.2; Monocytes # (A) 0.5 k/uL (0-1.0); Monocytes % (A) 8 %; Neutrophils # (A) 4.1 k/uL (1.3-7.7); Neutrophils % (A) 70 %; Platelet Count 199 k/uL (150-450); RBC 4.49 m/uL (3.80-5.40); RDW 13.3 % (11.5-15.5); WBC 5.9 k/uL (3.8-10.6)
[2024-09-13 13:15] LABS: Prothrombin Time 10.6 sec (10.0-12.5)
[2024-09-13 13:21] LABS: ALT 19 U/L (4-34); AST 32 U/L (14-36); African American GFR (CKD) 41 (>60 ml/min/1.73 sqM); Alkaline Phosphatase 47 U/L (38-126); Amylase 68 U/L (30-110); Anion Gap 5 mmol/L; Blood Urea Nitrogen 24 mg/dL (7-17); Calcium 9.3 mg/dL (8.4-10.2); Carbon Dioxide 25 mmol/L (22-30); Chloride 104 mmol/L (98-107); Glucose 101 mg/dL (74-99); Lipase 236 U/L (23-300); Non-African American GFR(CKD) 35 (>60 ml/min/1.73 sqM); Potassium 4.3 mmol/L (3.5-5.1); Sodium 134 mmol/L (137-145); Total Bilirubin 0.5 mg/dL (0.2-1.3); Total Protein 6.3 g/dL (6.3-8.2)
--- NOTE | 2024-09-13 13:32 | ED ---
General Adult HPI - General Chief complaint: Nausea/Vomiting/Diarrhea Stated complaint: Dizziness,weakness,diarrhea Time Seen by Provider: 09/13/24 12:08 Source: patient Mode of arrival: ambulatory Limitations: no limitations - History of Present Illness Initial comments: Patient is 83-year old female with a past medical history of hypertension presenting today for generalized weakness as well as nausea vomiting and diarrhea. History is provided by patient and her daughter. Patient did attend a wind wedding on Monday and her grandson who was also at the wedding has been sick with similar symptoms. On Monday patient began having a runny nose and cough. Yesterday she began to feel better however this morning she began having diarrhea, nausea and vomiting. States she had an episode of diarrhea after eating twice today. Stools were runny, nonbloody, no black color to them. Also had 2 episodes of nonbloody nonbilious emesis. Patient also states that when she got up to use the bathroom she also noticed lower neck pain and felt like this area of discomfort was more prominent than normal. Patient states she has had multiple falls in the past year where she thinks she injured her neck and does have a hx of chronic neck pain due to this. Of note, her neck pain today is similar to her chronic neck pain. No neck stiffness or headache. She denies any weakness or numbness in bilateral upper extremities. Denies changes in vision, slurred speech, new numbness or weakness. [place] subjective chills at home but denies fevers. Denies dysuria, or hematuria. Patient did not take any antipyretics or pain medications prior to arrival. - Related Data Home Medications Medication Instructions Recorded Confirmed Levothyroxine Sodium [Synthroid] 75 mcg PO DAILY 03/04/23 09/13/24 Vit C/E/Zn/Coppr/Lutein/Zeaxan 1 cap PO HS 09/13/24 09/13/24 [Preservision Areds 2 Softgel] Vitamin K 90mg/Vitamin D 125mcg 1 cap PO HS 09/13/24 09/13/24 Previous Rx's Medication Instructions Recorded Acetaminophen Tab [Tylenol] 650 mg PO Q6HR PRN tab 09/14/24 Allergies Allergy/AdvReac Type Severity Reaction Status Date / Time Penicillins Allergy Rash/Hives Verified 09/13/24 16:26 Review of Systems ROS Statement: Those systems with pertinent positive or pertinent negative responses have been documented in the HPI. ROS Other: All systems not noted in ROS Statement are negative. Past Medical History Past Medical History: Hypertension, Osteoarthritis (OA), Thyroid Disorder Additional Past Medical History / Comment(s): TORN CARTILEDGE ON LEFT KNEE History of Any Multi-Drug Resistant Organisms: None Reported Past Surgical History: Breast Surgery, Cholecystectomy, Tubal Ligation Additional Past Surgical History / Comment(s): BREAST BIOPSY X2 NEG. Past Anesthesia/Blood Transfusion Reactions: Postoperative Nausea & Vomiting (PONV) Past Psychological History: No Psychological Hx Reported Smoking Status: Never smoker Past Alcohol Use History: None Reported Past Drug Use History: None Reported General Exam - General Exam Comments Initial Comments: PE: CONSTITUTIONAL: No apparent distress, well appearing SKIN: Warm, dry, no jaundice, hives or petechiae EYES: Pupils are equally round, extraocular movements intact without nystagmus, clear conjunctiva, non-icteric sclera HENT: Normocephalic, atraumatic, dry mucus membranes, oropharynx clear without exudates NECK: , Full range of motion, able to flex and extend her neck without dif ficulty, some difficulty fully rotating her head beyond 45 degrees in either direction due to neck pain, normal appearance, no midline TTP, the spinous processes of C7/T1 are prominent however no step-offs, deformity, or fluctuance with palpation of this area, no overlying skin changes PULMONARY: Clear to auscultation without wheezes, rhonchi, or rales, normal excursion, no accessory muscle use and no stridor CARDIOVASCULAR: Regular rate, rhythm, normal S1 and S2. No appreciated murmurs, rubs or gallops. Strong radial pulses with intact distal perfusion. No lower extremity edema GASTROINTESTINAL: Soft, active bowel sounds throughout, mild periumbilical and epigastric tenderness to palpation, non-distended, no palpable masses, no rebound or guarding. No hepatosplenomegaly MUSCULOSKELETAL: Extremities have no gross deformity, no edema, redness, or swelling. No calf swelling NEUROLOGIC:_a/o x 3, GCS 15, normal mentation and speech. Moves all extremities x 4 without motor or sensory deficit Examined Cranial nerves: II (visual mullins without defects), III, IV and (extraocular movements are intact, pupils are equal with normal reaction to light), V (intact facial sensation and jaw opening), VII (no facial droop), IX and X (normal palate movement, normal voice), XII (midline tongue protrusion). Motor strength is 5/5 in all extremities. No abnormal movements. Normal muscle tone. Sensation to light touch is intact bilaterally. No cerebellar signs ([id number], sozh-xg-lndq, are normal) PSYCHIATRIC:_normal mood and affect, thought process is clear and linear Limitations: no limitations Course Vital Signs 09/13/24 09/13/24 09/13/24 11:08 15:08 17:18 Temperature 97.8 F Pulse Rate 63 54 L 59 L Respiratory 20 17 17 Rate Blood Pressure 96/59 108/59 111/62 O2 Sat by Pulse 99 99 98 Oximetry 09/13/24 09/13/24 18:45 20:34 Temperature Pulse Rate 60 58 L Respiratory 16 16 Rate Blood Pressure 121/72 116/64 O2 Sat by Pulse 97 96 Oximetry EKG Findings - EKG Comments: EKG Findings:: This bradycardia, rate 54 bpm, GA interval 152 ms, QRS duration 91 ms, QT/QTc 423/410 ms, normal axis, no ST elevations or depressions, no arrhythmia present Medical Decision Making - Medical Decision Making Was pt. sent in by a medical professional or institution (, PA, WORKCELL OPERATOR, urgent care, hospital, or senior living...) When possible be specific @ -No Did you speak to anyone other than the patient for history (EMS, parent, family, police, friend...)? What history was obtained from this source @Patient's daughter also assisted in providing history Did you review nursing and triage notes (agree or disagree)? Why? @ -Reviewed nursing and triage notes, of no nausea vomiting diarrhea has only been ongoing today, patient's cold-like symptoms have been ongoing since Monday Were old charts reviewed (outside hosp., previous admission, EMS record, old EKG, old radiological studies, urgent care reports/EKG's, senior living records)? Report findings @ -Reviewed discharge summary from recent admission for stable angina in February 2024 in February 2023, patient had an abnormal stress test with concerns for possible areas of ischemia and a cardiac cath was performed, no interventions have been done in patient was recommended for medical management and close follow-up. Differential Diagnosis (chest pain, altered mental status, abdominal pain women, abdominal pain men, vaginal bleeding, weakness, fever, dyspnea, syncope, headache, dizziness, GI bleed, back pain, seizure, CVA, palpatations, mental health, musculoskeletal)? @ -Differential diagnosis remains broad however top considerations include infection, appendicitis, partial bowel obstruction, vovlulus, ACS, transverse myelitis, viral infection, UTI, electrolyte abnormality, anemia, dehydration this is not an all-inclusive list EKG interpreted by me (3pts min.). @ -As above X-rays interpreted by me (1pt min.). @ -None done CT interpreted by me (1pt min.). @ I see no evidence of mass or abscess on CT brain, no evidence of fracture on CT neck no obvious consolidations on CT chest, CT abdomen does not show obstruction or free air/fluid that would indicate perforation U/S interpreted by me (1pt. min.). @ -None done What testing was considered but not performed or refused? (CT, X-rays, U/S, labs)? Why? @ Considered CT a/pelvis w/ constrast however patient noted to have MIGUEL ÁNGEL on labs, so in order to prevent contrast induced nephropathy, order was changed to wo contrast What meds were considered but not given or refused? Why? @ -None Did you discuss the management of the patient with other professionals (professionals i.e. , PA, WORKCELL OPERATOR, lab, RT, psych nurse, social staff worker, harpooner, teacher, development officer, leather case finisher)? Give summary @ -No Was smoking cessation discussed for >3mins.? @ -No Was critical care preformed (if so, how long)? @ -No Were there social determinants of health that impacted care today? How? (Homelessness, low income, unemployed, alcoholism, drug addiction, transportation, low edu. Level, literacy, decrease access to med. care, penitentiary, rehab)? @ -No Was there de-escalation of care discussed even if they declined (Discuss DNR or withdrawal of care, Hospice)? @ -No What co-morbidities impacted this encounter? (DM, HTN, Smoking, COPD, CAD, Cancer, CVA, ARF, Chemo, Hep., AIDS, mental health diagnosis, sleep apnea, morbid obesity)? @ -None Was patient admitted / discharged? Hospital course, mention meds given and route, prescriptions, significant lab abnormalities, going to OR and other pertinent info. @ -Hospital course admission for observation Patient is a pleasant 83-year-old female presenting today for generalized weakness, nausea, vomiting and diarrhea as well as acute on chronic neck pain. On my assessment patient is resting comfortable in NAD. Exam significant for dry MM, slight TTP abdomen in epigastrium and periumbilical region, pain with neck rotation beyond 45 degrees however no neck stiffness, no bony TTP, prominence of spinous process C7/T1 region, no step offs or overlying skin changes. Patient presents for N/V/D generalized weakness but at this time is concerned about acute on chronic neck pain. She has no focal neurologic deficits, equal strength in all 4 extremities and sensation intact in all 4 extremities. No signs of trauma. Pt has remote hx of falls but none today. With recent sick contact with similar symptoms I suspect patient symptoms are most likely related to a viral URI or gastroenteritis so will obtain Cephed panel, but I did additionally consider infectious spinal pathology such as transverse myelitis and spinal epidural abscess. I have a very low suspicion for this, given patient's neck pain is chronic and similar to prior episodes, has no neck stiffness and is nontoxic appearing, and no neurological deficits on exam however will obtain CT Cspine to more closely evaluate patient's area of concern. Pt has not had imaging of her neck in the past since this pain initially began. Additionally, w ill obtain CXR to evaluate for PNA, CT/Ab/pelvis w contrast to evaluate for acute intraabdominal pathology, UA, comprehensive labs, EKG, IV fluids and tylenol. Patient and daughter agreeable with POC. CT orders were ultimately changed to CT brain and C-spine as well as CT chest abdomen pelvis without contrast in order to fully visualize spine, chest and abdomen/pelvis after patient noted to have MIGUEL ÁNGEL and contrast CT was discontinued. I discussed this with patient and her daughter, they are agreeable plan of care. 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 Patient's workup significant for mild MIGUEL ÁNGEL. Patient is COVID-positive. Urinalysis does show findings concerning for UTI however patient denies any dysuria or urinary frequency or other symptoms of UTI. I discussed with patient and daughter results and we discussed discharge home with oral rehydration therapy versus admission for observation. Patient consider discharge home however her daughter is very concerned the patient has not been eating or d rinking and will not be able to drink enough fluids to improve her kidney function, and is it i the upcoming weekend she does not feel her mother will be able to follow-up closely with a primary care provider for recheck of her kidney function. For this reason patient will be admitted for observation for MIGUEL ÁNGEL. Patient discussed with Dr. Vides who kindly excepted patient for admission Undiagnosed new problem with uncertain prognosis? @ -No Drug Therapy requiring intensive monitoring for toxicity (Heparin, Nitro, Insulin, Cardizem)? @ -No Were any procedures done? @ -No Diagnosis/symptom? @ -Nausea, vomiting, diarrhea, COVID-19, acute on chronic neck pain, MIGUEL ÁNGEL Acute, or Chronic, or Acute on Chronic? @Acute and acute on chronic Uncomplicated (without systemic symptoms) or Complicated (systemic symptoms)? @ -Complicated Side effects of treatment? @ -No Exacerbation, Progression, or Severe Exacerbation? @ -No Poses a threat to life or bodily function? How? (Chest pain, [place], [place], pneumonia, PE, COPD, DKA, ARF, appy, cholecystitis, CVA, Diverticulitis, Homicidal, Suicidal, threat to staff... and all critical care pts) @ -No - Lab Data Result diagrams: 09/13/24 13:04 09/14/24 03:56 Lab Results 09/13/24 09/13/24 09/13/24 Range/Units 13:04 13:04 13:04 WBC 5.9 (3.8-10.6) k/uL RBC 4.49 (3.80-5.40) m/uL Hgb 13.3 (11.4-16.0) gm/dL Hct 41.7 (34.0-46.0) % MCV 93.0 (80.0-100.0) fL MCH 29.7 (25.0-35.0) pg MCHC 31.9 (31.0-37.0) g/dL RDW 13.3 (11.5-15.5) % Plt Count 199 (150-450) k/uL MPV 7.2 Neutrophils % 70 % Lymphocytes % 18 % Monocytes % 8 % Eosinophils % 0 % Basophils % 0 % Neutrophils # 4.1 (1.3-7.7) k/uL Lymphocytes # 1.1 (1.0-4.8) k/uL Monocytes # 0.5 (0-1.0) k/uL Eosinophils # 0.0 (0-0.7) k/uL Basophils # 0.0 (0-0.2) k/uL PT 10.6 (10.0-12.5) sec INR 1.0 (<1.2) Sodium 134 L (137-145) mmol/L Potassium 4.3 (3.5-5.1) mmol/L Chloride 104 (98-107) mmol/L Carbon Dioxide 25 (22-30) mmol/L Anion Gap 5 mmol/L BUN 24 H (7-17) mg/dL Creatinine 1.39 H (0.52-1.04) mg/dL Est GFR (CKD-EPI)AfAm 41 (>60 ml/min/1.73 sqM) Est GFR (CKD-EPI)NonAf 35 (>60 ml/min/1.73 sqM) Glucose 101 H (74-99) mg/dL Calcium 9.3 (8.4-10.2) mg/dL Total Bilirubin 0.5 (0.2-1.3) mg/dL AST 32 (14-36) U/L ALT 19 (4-34) U/L Alkaline Phosphatase 47 (38-126) U/L Troponin I (0.000-0.034) ng/mL Total Protein 6.3 (6.3-8.2) g/dL Albumin 4.0 (3.5-5.0) g/dL Amylase 68 (30-110) U/L Lipase 236 (23-300) U/L Urine Color Urine Appearance (Clear) Urine pH (5.0-8.0) Ur Specific [place] (1.001-1.035) Urine Protein (Negative) Urine Glucose (UA) (Negative) Urine Ketones (Negative) Urine Blood (Negative) Urine Nitrite (Negative) Urine Bilirubin (Negative) Urine Urobilinogen (<2.0) mg/dL Ur Leukocyte Esterase (Negative) Urine RBC (0-5) /hpf Urine WBC (0-5) /hpf Urine WBC Clumps (None) /hpf Ur Squamous Epith Cells (0-4) /hpf Urine Bacteria (None) /hpf Hyaline Casts (0-2) /lpf Urine Mucus (None) /hpf Urine Yeast (Budding) (None) /hpf Influenza Type A (PCR) (Not Detectd) Influenza Type B (PCR) (Not Detectd) RSV (PCR) (Not Detectd) SARS-CoV-2 (PCR) (Not Detectd) 09/13/24 09/13/24 09/13/24 Range/Units 13:04 13:04 13:15 WBC (3.8-10.6) k/uL RBC (3.80-5.40) m/uL Hgb (11.4-16.0) gm/dL Hct (34.0-46.0) % MCV (80.0-100.0) fL MCH (25.0-35.0) pg MCHC (31.0-37.0) g/dL RDW (11.5-15.5) % Plt Count (150-450) k/uL MPV Neutrophils % % Lymphocytes % % Monocytes % % Eosinophils % % Basophils % % Neutrophils # (1.3-7.7) k/uL Lymphocytes # (1.0-4.8) k/uL Monocytes # (0-1.0) k/uL Eosinophils # (0-0.7) k/uL Basophils # (0-0.2) k/uL PT (10.0-12.5) sec INR (<1.2) Sodium (137-145) mmol/L Potassium (3.5-5.1) mmol/L Chloride (98-107) mmol/L Carbon Dioxide (22-30) mmol/L Anion Gap mmol/L BUN (7-17) mg/dL Creatinine (0.52-1.04) mg/dL Est GFR (CKD-EPI)AfAm (>60 ml/min/1.73 sqM) Est GFR (CKD-EPI)NonAf (>60 ml/min/1.73 sqM) Glucose (74-99) mg/dL Calcium (8.4-10.2) mg/dL Total Bilirubin (0.2-1.3) mg/dL AST (14-36) U/L ALT (4-34) U/L Alkaline Phosphatase (38-126) U/L Troponin I <0.012 (0.000-0.034) ng/mL Total Protein (6.3-8.2) g/dL Albumin (3.5-5.0) g/dL Amylase (30-110) U/L Lipase (23-300) U/L Urine Color Yellow Urine Appearance Cloudy H (Clear) Urine pH 5.5 (5.0-8.0) Ur Specific [place] 1.017 (1.001-1.035) Urine Protein 1+ H (Negative) Urine Glucose (UA) Negative (Negative) Urine Ketones Negative (Negative) Urine Blood Negative (Negative) Urine Nitrite Negative (Negative) Urine Bilirubin Negative (Negative) Urine Urobilinogen <2.0 (<2.0) mg/dL Ur Leukocyte Esterase Large H (Negative) Urine RBC 4 (0-5) /hpf Urine WBC 88 H (0-5) /hpf Urine WBC Clumps Moderate H (None) /hpf Ur Squamous Epith Cells 2 (0-4) /hpf Urine Bacteria Occasional H (None) /hpf Hyaline Casts 92 H (0-2) /lpf Urine Mucus Moderate H (None) /hpf Urine Yeast (Budding) Occasional H (None) /hpf Influenza Type A (PCR) Not Detected (Not Detectd) Influenza Type B (PCR) Not Detected (Not Detectd) RSV (PCR) Not Detected (Not Detectd) SARS-CoV-2 (PCR) Detected A (Not Detectd) Disposition Clinical Impression: MIGUEL ÁNGEL (acute kidney injury) Disposition: ADMITTED IP TO THIS [facility] Condition: Good
[2024-09-13 13:53] LABS: Appearance,Urine Cloudy (Clear); Bacteria,Urine Occasional /hpf; Bilirubin,Urine Negative (Negative); Blood,Urine Negative (Negative); Budding Yeast,Urine Occasional /hpf; Color,Urine Yellow; Glucose,Urine (UA) Negative (Negative); Hyaline Casts,Urine 92 /lpf (0-2); Ketones,Urine Negative (Negative); Leukocyte Esterase,Urine Large (Negative); Mucus,Urine Moderate /hpf; Nitrite,Urine Negative (Negative); PH, Urine 5.5 (5.0-8.0); Protein,Urine 1+ (Negative); RBC,Urine 4 /hpf (0-5); Specific Gravity,Urine 1.017 (1.001-1.035); Squamous Epithelial Cell,Urine 2 /hpf (0-4); Urobilinogen,Urine <2.0 mg/dL (<2.0); WBC,Urine 88 /hpf (0-5)
[2024-09-13] MEDS: SODIUM CHLORIDE 0.9% 1,000 ML IV STA (14:04)
[2024-09-13] MEDS: ONDANSETRON 4 MG/2 ML VIAL IVP STA (14:05)
[2024-09-13] MEDS: ACETAMINOPHEN TAB 500 MG TAB PO STA (14:07)
--- NOTE | 2024-09-13 14:34 | CT ---
EXAMINATION TYPE: CT brain cspine wo con CT DLP: 1694.4 mGycm, Automated exposure control for dose reduction was used. DATE OF EXAM: 09/13/2024 2:11 PM COMPARISON: CT brain C-spine 05/28/2010. CLINICAL INDICATION:Female, 83 years old with history of posterior neck pain C7/T1, pt feels like "sw ollen'; posterior neck pain C7/T1, pt feels like "swollen' TECHNIQUE: Brain: Multiple axial CT images of the brain were obtained without IV contrast. Cspine: Axial CT images from the skull base to the inferior aspect of T2 we obtained without intraven ous contrast. Coronal and sagittal reformatted images were also reviewed. FINDINGS: Brain: Extra-axial spaces: No abnormal extra-axial fluid collections. Ventricular system: Within normal limits Cerebral parenchyma: No acute intraparenchymal hemorrhage or mass effect. The valdez-white junction is well differentiated. Scattered hypoattenuating areas are seen within the periventricular white matte r. Cerebellum: Unremarkable. Mass effect: No evidence of midline shift. Intracranial vasculature: Atherosclerotic calcifications of the intracranial vessels. Soft tissues: Normal. Calvarium/osseous structures: No depressed skull fracture. Paranasal sinuses and mastoid air cells: Mild mucosal thickening throughout the ethmoid, maxillary, a nd sphenoid sinuses. The mastoid air cells are clear. Visualized orbits: Bilateral aphakia Cervical spine: Fracture: None. Osseous structures: Multilevel degenerative disc disease changes with endplate spurring and disc oste ophyte complex's. Incidental incomplete posterior arch of C1 fusion. Vertebral alignment: Within normal limits. Spinal canal/Neural Foramina: Disc osteophyte complexes at C4-C5 and C5-C6 with at least mild spinal canal stenosis. Fusion of the left C1-C2, C4-C5, C5-C6 facet joints. Fusion of the right C3-C4 and C4 -C5 facet joints. Facet joint uncovertebral joint arthropathy scattered throughout the cervical spine with varying degrees of neural foraminal stenosis. Moderate right neuroforaminal stenosis at C5-C6. Mild right neural foraminal stenosis at C4-C5 and C6-C7. Neck soft tissues: Prevertebral soft tissues are within normal limits. No abnormal soft tissue library manager ior C7-T1. Other: The airway is patent. Left-sided carotid bulb calcifications. Refer to dedicated CT chest of s margi day for findings. IMPRESSION: 1. No acute intracranial process. 2. Nonspecific white matter changes, likely secondary to chronic small vessel ischemic disease. 3. No evidence of cervical spine fracture. 4. Moderate multilevel degenerative disc disease and facet arthropathy. [facility], , 09/13/2024 2:31 PM
--- NOTE | 2024-09-13 14:41 | CT ---
EXAMINATION TYPE: CT ChestAbdPelvis wo con CT DLP: 1694.4 mGycm, Automated exposure control for dose reduction was used. DATE OF EXAM: 09/13/2024 2:11 PM COMPARISON: CTA chest 03/04/2023 CLINICAL INDICATION:Female, 83 years old with history of chronic neck pain, T1, feels "swollen", N/V/ D; PHH, N,V,D and weakness Technique: Multiple axial images of the chest, abdomen, and pelvis were obtained without the administ ration of intravenous or oral contrast. This limits evaluation. Two-dimensional coronal and sagittal reconstructions were obtained. Findings: CHEST: LUNGS/ PLEURA: No pleural effusion, pneumothorax, focal consolidation. Minimal left lower lobe sulci atelectasis. No suspicious pulmonary nodule or mass. AIRWAY: Patent and unremarkable.. HEART: Size within normal limits. Small pericardial effusion. Mitral annulus calcifications. Small co ronary artery calcifications. MEDIASTINUM: No gross evidence of adenopathy. VASCULATURE: No aortic aneurysm. Mild atherosclerotic calcification of the aorta and its branches. MUSCULOSKELETAL: No acute osseous abnormalities. Right-sided AC joint arthropathy. SOFT TISSUES/LYMPH NODES: Unremarkable. LOWER NECK: No significant findings. ABDOMEN: ABDOMEN LIVER: Unremarkable noncontrast appearance. GALLBLADDER AND BILE DUCTS: Gallbladder surgically absent. No biliary ductal dilatation. PANCREAS: Unremarkable noncontrast appearance. SPLEEN: Unremarkable noncontrast appearance. ADRENAL GLANDS: Unremarkable noncontrast appearance.. KIDNEYS AND URETERS: No evidence of hydronephrosis or renal calculus. PELVIS BLADDER: Incompletely distended but grossly unremarkable. REPRODUCTIVE: Unremarkable noncontrast appearance. ABDOMEN & PELVIS STOMACH AND BOWEL: Stomach and duodenum are unremarkable. Distal colonic diverticulosis without evide nce for acute diverticulitis. The appendix is within normal limits. No evidence of bowel obstruction. PERITONEUM: No evidence of pneumoperitoneum or free fluid. VASCULATURE: No evidence of aortic aneurysm. Moderate atherosclerotic calcification of the aorta and its branches. MUSCULOSKELETAL: No acute osseous abnormalities. Mild retrolisthesis of L4 on L5 with grade 1 nearly grade 2 anterolisthesis of L5 on S1 with bilateral pars defects. Multilevel degenerative disc disease of the lower lumbar spine. Mild levocurvature of the thoracolumbar spine. LYMPH NODES: No gross evidence for lymphadenopathy. SOFT TISSUE/ABDOMINAL WALL: Unremarkable IMPRESSION: 1. No acute process within the chest, abdomen and pelvis. 2. Colonic diverticulosis without evidence for acute diverticulitis. 3. Nearly grade 2 anterolisthesis of L5 on S1 with bilateral pars defects. [facility], , 09/13/2024 2:38 PM
[2024-09-13] MEDS ORDERED: ACETAMINOPHEN TAB 325 MG TAB PO PRN (16:28)
[2024-09-13] MEDS ORDERED: CALCIUM CARBONATE 500 MG CHEWABLE PO PRN (16:28)
[2024-09-13] MEDS ORDERED: traMADol 50 MG TAB PO PRN (16:28)
[2024-09-13] MEDS ORDERED: NALOXONE 0.4 MG/ML 1 ML VIAL IV PRN (16:28)
[2024-09-13] MEDS ORDERED: ONDANSETRON 4 MG/2 ML VIAL IVP PRN (16:28)
[2024-09-13] MEDS ORDERED: MAG HYDROX/AL HYDROX/SIMETH 30 ML CUP PO PRN (16:28)
[2024-09-13] MEDS: SODIUM CHLORIDE 0.9% 1,000 ML IV SCH (17:27)
--- NOTE | 2024-09-13 18:32 | P.HPIM ---
History of Present Illness H&P Date: 09/13/24 Chief Complaint: Diarrhea, nausea, vomiting 83-year-old woman with a medical history of hypothyroidism, hypertension who presented for evaluation of abdominal pain, nausea, vomiting, diarrhea. Patient says that 1 week ago she was in contact with her nephew who had symptoms of diarrhea, vomiting. Over the week she started develop similar symptoms starting with diarrhea which was nonbloody. This was associated with loss of appetite and she has had poor p.o. intake over the last week. Over the last 24 hours she developed nausea and vomiting as well, prompting her evaluation in the emergency room. She does report subjective fevers versus flushing. She denies chest pain, palpitations, syncope. She does report dizziness, presyncope while ambulating over the last couple days. In the emergency room, patient was afebrile, 96/59, heart rate 63, 99% on room air. CBC was unremarkable. Basic metabolic panel showed hyponatremia to 134, BUN is 24, creatinine is 1.4. Liver function tests are unremarkable. Lipase was 236. Troponin is less than 0.012. UA showed cloudy appearance with 1+ protein, large leukocyte esterase, 88 white blood cells, moderate white blood cell clumps, occasional bacteria, 92 hyaline casts. Influenza A, B, RSV were negative. COVID was positive. Head/cervical spine CT was negative for acute process, did show chronic changes in the brain, moderate multilevel degenerative disc disease. CT of the chest abdomen pelvis showed no acute process. Case was discussed with the emergency room divider and decision was made to admit the pa tient to observation for gastroenteritis. All Systems reviewed and pertinent positives and negatives noted in HPI, all other symptoms are negative Gen: In NAD, non-toxic HEENT: normocephalic, atraumatic, hearing acuity is intant, mucous membranes moist CVS: perfusing all extremities well, no pitting edema, Respiratory: symmetric chest expansion, no accessory muscle use, GI: soft, NTTP, ND, : no suprapubic tenderness, no CVA tenderness MSK/Derm: no rashes, cyanosis Neuro: CN II-XII intact, no motor weakness, Psych: cooperative, euthymic mood, judgment and insight is intact Labs and images reviewed as above Assessment/plan: Viral gastroenteritis Acute kidney injury Dehydration secondary to poor p.o. intake COVID-positive -Admit to observation -IV fluids -Orthostatics twice daily -Repeat labs in the morning Asymptomatic bacteriuria -Defer antibiotics at this time Hypertension Hypothyroidism -Home medications reviewed and reconciled, holding blood pressure medications at this time -Resume levothyroxine Patient is full code Past Medical History Past Medical History: Hypertension, Osteoarthritis (OA), Thyroid Disorder Additional Past Medical History / Comment(s): TORN CARTILEDGE ON LEFT KNEE History of Any Multi-Drug Resistant Organisms: None Reported Past Surgical History: Breast Surgery, Cholecystectomy, Tubal Ligation Additional Past Surgical History / Comment(s): BREAST BIOPSY X2 NEG. Past Anesthesia/Blood Transfusion Reactions: Postoperative Nausea & Vomiting (PONV) Past Psychological History: No Psychological Hx Reported Smoking Status: Never smoker Past Alcohol Use History: None Reported Past Drug Use History: None Reported Medications and Allergies Home Medications Medication Instructions Recorded Confirmed Type Levothyroxine Sodium [Synthroid] 75 mcg PO DAILY 03/04/23 09/13/24 History atenoloL [Tenormin] 25 mg PO HS 03/04/23 09/13/24 History Vit C/E/Zn/Coppr/Lutein/Zeaxan 1 cap PO HS 09/13/24 09/13/24 History [Preservision Areds 2 Softgel] Vitamin K 90mg/Vitamin D 125mcg 1 cap PO HS 09/13/24 09/13/24 History lisinopriL [Zestril] 20 mg PO HS 09/13/24 09/13/24 History Allergies Allergy/AdvReac Type Severity Reaction Status Date / Time Penicillins Allergy Rash/Hives Verified 09/13/24 16:26 Physical Exam Osteopathic Statement: *. No significant issues noted on an osteopathic structural exam other than those noted in the History and Physical/Consult. Vitals: Vital Signs Temp Pulse Resp BP Pulse Ox 09/13/24 17:18 59 L 17 111/62 98 09/13/24 15:08 54 L 17 108/59 99 09/13/24 11:08 97.8 F 63 20 96/59 99 Intake and Output 09/13/24 09/13/24 09/13/24 06:59 14:59 22:59 Other: Weight 58.967 kg Results CBC & Chem 7: 09/13/24 13:04 09/13/24 13:04 Labs: Abnormal Lab Results - Last 24 Hours (Table) 09/13/24 09/13/24 09/13/24 Range/Units 13:04 13:04 13:15 Sodium 134 L (137-145) mmol/L BUN 24 H (7-17) mg/dL Creatinine 1.39 H (0.52-1.04) mg/dL Glucose 101 H (74-99) mg/dL Urine Appearance Cloudy H (Clear) Urine Protein 1+ H (Negative) Ur Leukocyte Esterase Large H (Negative) Urine WBC 88 H (0-5) /hpf Urine WBC Clumps Moderate H (None) /hpf Urine Bacteria Occasional H (None) /hpf Hyaline Casts 92 H (0-2) /lpf Urine Mucus Moderate H (None) /hpf Urine Yeast (Budding) Occasional H (None) /hpf SARS-CoV-2 (PCR) Detected A (Not Detectd)
[2024-09-13] MEDS: FAMOTIDINE 20 MG TAB PO SCH (20:37)
[2024-09-13] MEDS ORDERED: [UNRECOGNIZED DRUG - MIXTURE] PO SCH (21:00)
[2024-09-13] MEDS: VIT A,C & E-LUTEIN-MINERALS 1 EACH TAB PO SCH (23:27)
[2024-09-14] MEDS: LEVOTHYROXINE 75 MCG TAB PO SCH (06:45)
[2024-09-14] MEDS: FAMOTIDINE 20 MG TAB PO SCH (08:07)
[2024-09-14 08:11] VITALS: RESP 18
[2024-09-14 10:32] LABS: Blood Urea Nitrogen 19.7 mg/dL (9.0-27.0); Calcium 8.3 mg/dL (8.7-10.3); Carbon Dioxide 22.2 mmol/L (21.6-31.8); Chloride 108 mmol/L (96-109); Glucose 85 mg/dL (70-110); Potassium 4.2 mmol/L (3.5-5.5); Sodium 140 mmol/L (135-145)
--- NOTE | 2024-09-14 12:39 | P.DS ---
Providers Date of admission: 09/13/24 16:29 Expected date of discharge: 09/14/24 Attending physician: Dom Vides MD Primary care physician: Trung Arroyo Hospital Course: Viral gastroenteritis Acute kidney injury Dehydration secondary to poor p.o. intake COVID-positive Asymptomatic bacteriuria Hypertension Hypothyroidism Hospital Course: 83-year-old woman with a medical history of hypothyroidism, hypertension who presented for evaluation of abdominal pain, nausea, vomiting, diarrhea. In the emergency room, patient was afebrile, 96/59, heart rate 63, 99% on room air. CBC was unremarkable. Basic metabolic panel showed hyponatremia to 134, BUN is 24, creatinine is 1.4. Liver function tests are unremarkable. Lipase was 236. Troponin is less than 0.012. UA showed cloudy appearance with 1+ protein, large leukocyte esterase, 88 white blood cells, moderate white blood cell clumps, occasional bacteria, 92 hyaline casts. Influenza A, B, RSV were negative. COVID was positive. Head/cervical spine CT was negative for acute process, did show chronic changes in the brain, moderate multilevel degenerative disc disease. CT of the chest abdomen pelvis showed no acute process. Case was discussed with the emergency room divider and decision was made to admit the patient to observation for gastroenteritis and MIGUEL ÁNGEL. Pt was hydrated and monitored overnight with repeat blood work today noting improvement of MIGUEL ÁNGEL. Pt instructed to f/u with PCP, and to hold BP medications until re-assessed at Dr. Arroyo's office. Gen: In NAD, non-toxic HEENT: normocephalic, atraumatic, hearing acuity is intant, mucous membranes moist CVS: perfusing all extremities well, no pitting edema, Respiratory: symmetric chest expansion, no accessory muscle use, GI: soft, NTTP, ND, : no suprapubic tenderness, no CVA tenderness MSK/Derm: no rashes, cyanosis Neuro: CN II-XII intact, no motor weakness, Psych: cooperative, euthymic mood, judgment and insight is intact Patient Condition at Discharge: Good Plan - Discharge Summary New Discharge Prescriptions: New Acetaminophen Tab [Tylenol] 650 mg PO Q6HR PRN tab PRN Reason: Mild Pain Or Fever > 100.5 Continue Vit C/E/Zn/Coppr/Lutein/Zeaxan [Preservision Areds 2 Softgel] 1 cap PO HS Levothyroxine Sodium [Synthroid] 75 mcg PO DAILY Vitamin K 90mg/Vitamin D 125mcg 1 cap PO HS Discontinued atenoloL [Tenormin] 25 mg PO HS lisinopriL [Zestril] 20 mg PO HS Discharge Medication List Levothyroxine Sodium [Synthroid] 75 mcg PO DAILY 03/04/23 [History] Vit C/E/Zn/Coppr/Lutein/Zeaxan [Preservision Areds 2 Softgel] 1 cap PO HS 09/13/24 [History] Vitamin K 90mg/Vitamin D 125mcg 1 cap PO HS 09/13/24 [History] Acetaminophen Tab [Tylenol] 650 mg PO Q6HR PRN tab 09/14/24 [Rx] Follow up Appointment(s)/Referral(s): Trung Arroyo MD [Primary Care Provider] - 1-2 days Activity/Diet/Wound Care/Special Instructions: Resume your home BP medications (atenolol and lisinopril) only after you are cleared to do so by your primary care physician. [facility] follow up time following a hospitalization is within 1 week. Please call your PCP on Monday to arrange a follow up appointment. Discharge Disposition: HOME SELF-CARE
[2024-09-14 13:41] VITALS: BP 118/63; PULSE 63; TEMP 98.2
== END 2024-09-14 13:58 | disposition home or self-care (01) ==
LOC: EC 11:05 → 4SSUR 16:29
PROVIDERS: ADMIT Internal Medicine; ATTEND Internal Medicine
DX: A08.4 Viral intestinal infection, unspecified (principal); E86.0 Dehydration; E87.1 Hypo-osmolality and hyponatremia; U07.1 COVID-19; Z91.81 History of falling; I10 Essential (primary) hypertension; E03.9 Hypothyroidism, unspecified; G89.29 Other chronic pain; R82.71 Bacteriuria; R55 Syncope and collapse; E07.9 Disorder of thyroid, unspecified; M19.90 Unspecified osteoarthritis, unspecified site; Z79.890 Hormone replacement therapy; Z79.899 Other long term (current) drug therapy; Z88.0 Allergy status to penicillin
CPT/HCPCS: 96361 ×3; 96374; 99285; 36415; 93005; 80053; 80048; 82150; 83690; 84484; 85025; 85610; 81001; 87636; 72125; 70450; 71250; 74176; G0378 ×2; J2405